=== PATIENT | female | born 1955 | race Two or more races ===

== ENCOUNTER 2022-07-21 09:33 | Emergency (ER) | payer OTHER ==
[~2022-07-21] VITALS: Ht 152.4 cm; Wt 73.9 kg
[2022-07-21] MEDS ORDERED: LEVOTHYROXINE25 MC1 PO (09:39)
[2022-07-21] MEDS ORDERED: JANUMET XR 50-1 EAC1 PO (09:39)
[2022-07-21] MEDS ORDERED: IBANDRONATE SO150 MG PO (09:40)
[2022-07-21] MEDS ORDERED: MEDROLPACK PO (14:36)
[2022-07-21] MEDS ORDERED: KETO10TA2 PO (14:36)
== END 2022-07-21 14:43 | disposition home or self-care (01) ==
LOC: ER 09:33
DX: K11.20 Sialoadenitis, unspecified (principal); R60.9 Edema, unspecified; J32.8 Other chronic sinusitis; Z88.8 Allergy status to other drugs, medicaments and biological substances